=== PATIENT | male | born 1980 | race Caucasian/White ===

== ENCOUNTER 2022-09-26 12:02 | Emergency (ER) | payer OTHER ==
[2022-09-26 12:15] VITALS: BP 146/88
--- NOTE | 2022-09-26 13:22 | ED Physician Documentation ---
History of Present Illness - Stated complaint Stated Complaint: LEFT FOOT PAIN,GOUT - Chief complaint Chief Complaint: Ext Problem - Additonal information Additional information: 42-year-old male who has a history of gout presents emergency department with increased left great toe pain that began 5 days ago. He is on allopurinol daily. He is also on Prozac and amitriptyline for depression and sleep. He denies any falls or trauma. No fevers. He denies missing doses of allopurinol. He has been taking 600 Motrin 3 times a day without relief of symptoms. History is obtained from patient Review of Systems Constitutional: denies: Fever, Chills Throat: reports: Reviewed and negative Cardiac: reports: Reviewed and negative Respiratory: reports: Reviewed and negative GI: reports: Reviewed and negative Skin: denies: Rash, Lesions Musculoskeletal: reports: Joint pain. denies: Joint swelling PD PAST MEDICAL HISTORY - Present Medications Home Medications: Ambulatory Orders Medication Instructions Recorded Confirmed Amitriptyline [Elavil] 25 mg PO DAILY PM PRN 09/26/22 09/26/22 Fluoxetine HCl [Prozac] 60 mg PO DAILY 09/26/22 09/26/22 HYDROcod/ACETAM 5/325 [Fayette 5/325] 1 tablet PO BID PRN #5 tablet 09/26/22 allopurinoL [Allopurinol] 300 mg PO DAILY 09/26/22 09/26/22 predniSONE [Deltasone] 40 mg PO DAILY 5 Days #10 tablet 09/26/22 - Allergies Allergies/Adverse Reactions: Allergies Allergy/AdvReac Type Severity Reaction Status Date / Time No Known Drug Allergies Allergy Verified 09/26/22 12:13 PD ED PE NORMAL - General General: Alert and oriented X 3, No acute distress, Well developed/nourished - HEENT HEENT: Atraumatic, Moist mucous membranes - Neck Neck: Supple, no meningeal sign, No adenopathy, No JVD - Cardiac Cardiac: RRR, No murmur, No gallop - Respiratory Respiratory: No respiratory distress, Clear bilaterally - Abdomen Abdomen: Normal bowel sounds, Soft - Back Back: No CVA TTP, No spinal TTP - Derm Derm: Normal color, Warm and dry, No rash - Extremities Extremities: Other (Tenderness of the left great toe with mild erythema but no significant swelling.) - Neuro Neuro: Alert and oriented X 3, 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 He is on allopurinol. Despite this he continues to have pain despite taking Motrin for the last 5 days. History and exam is most consistent with a gout flare. No fevers or induration to suggest infection. No falls or trauma. Patient will be started on a 5-day course of prednisone and a limited amount of F[place]. Advised close follow-up with his PCP. May benefit from a prescription for as needed flare pain such as indomethacin. Emergent return precautions were discussed for worsening symptoms. Departure - Departure Disposition: 01 Home, Self Care Clinical Impression: Gout flare Qualifiers: Gout site: toe Gout etiology: unspecified cause Laterality: left Qualified Code(s): M10.9 - Gout, unspecified Condition: Stable Record reviewed to determine appropriate education?: Yes Prescriptions: predniSONE [Deltasone] 40 mg PO DAILY 5 Days #10 tablet HYDROcod/ACETAM 5/325 [F[place] 5/325] 1 tablet PO BID PRN #5 tablet PRN Reason: Pain
== END 2022-09-26 13:54 | disposition home or self-care (01) ==
LOC: ED 12:02
DX: M10.9 Gout, unspecified (principal)
CPT/HCPCS: 99281; 99283